=== PATIENT | female | born 2000 | race Caucasian/White ===

== ENCOUNTER 2021-12-04 21:33 | Emergency (ER) | payer OTHER | END 2021-12-04 22:44 | disposition home or self-care (01) | LOC: JP.ED 21:33 | DX: J02.8 Acute pharyngitis due to other specified organisms (principal); B96.89 Other specified bacterial agents as the cause of diseases classified elsewhere | CPT/HCPCS: 36415; 85025; 86308; 87081; 87880-QW; 99283 ==